=== PATIENT | female | born 1955 | race Caucasian/White ===

== ENCOUNTER 2020-08-15 06:25 | Observation (INO) | payer MEDICARE, OTHER, SELFPAY ==
[2020-08-15] VITALS (45 sets, daily range): BP systolic 113–172; BP diastolic 50–97; PULSE 61–86; RESP 1–28; TEMP 36.6–36.9; O2SAT 89–100; BMI 34.1
--- NOTE | 2020-08-15 06:49 | ECG_ITS ---
[facility] Test Date: 2020-08-15 Pat Name: carl hinds Department: Room: Gender: Female National Opelint Analyst: : 1955 Requested By: Rudolph Biggs Order Number: [id number] Dayanara MD: Naresh Cole M.D. Measurements Intervals [place] Rate: 80 P: 39 ID: [id number] QRS: 50 QRSD: 84 T: 41 QT: 376 QTc: 434 Interpretive Statements SINUS RHYTHM MODERATE ST DEPRESSION [0.05+ mV ST DEPRESSION] No previous ECG available for comparison Electronically Signed On 08-15-2020 17:50:14 LEVEL VIAL GRINDER by Naresh Cole M.D. [id number]
--- NOTE | 2020-08-15 06:49 | XRR_ITS ---
PROCEDURE INFORMATION: Exam: XR Chest, 1 View Exam date and time: 08/15/2020 6:50 AM Age: 65 years old Clinical indication: Chest pain TECHNIQUE: Imaging protocol: XR of the chest Views: 1 view. COMPARISON: No relevant prior studies available. FINDINGS: Lungs: There is mild patchy atelectasis or infiltrate in the left base along the left hemidiaphragm. The right lung is clear. Pleural space: Unremarkable. No pleural effusion. No pneumothorax. Heart/Mediastinum: Unremarkable. No cardiomegaly. Bones/joints: Unremarkable. XR/XR chest 1V portable [id number] IMPRESSION: There is mild patchy atelectasis or infiltrate in the left base along the left hemidiaphragm.
--- NOTE | 2020-08-15 06:54 | ED_ITS ---
HPI - Chest Pain General: Chief Complaint: Chest Pain Stated Complaint: chest pain Time Seen by Provider: 08/15/20 06:26 Source: patient and EMS Mode of arrival: ambulatory Limitations: no limitations History of Present Illness: HPI narrative: Patient awoke with chest pain around 2 AM. Took 2 full-strength aspirin prior to arrival. EMS states chest pain resolved with 1 sublingual nitroglycerin tablet. Patient states pain is started to come back again in the last 5 minutes. No history of coronary artery disease. MD complaint: chest pain Onset (ago): hour(s) (4) Onset: during rest and awoke with symptoms Pain location: substernal Pain radiation: none Severity: moderate Quality: tightness Relieving factors: nitroglycerin Associated symptoms: Reports dyspnea; Deny abdominal pain, fever(s), nausea or vomiting Risk Factors: Coronary artery disease risk factors: diabetes and hypertension Review of Systems General: Reports: 10 or more systems reviewed and unremarkable except in HPI and below Const: Denies: fever(s) or chills ENMT: Denies: throat pain Card: Reports: chest pain Resp: Reports: dyspnea GI: Denies: abdominal pain, nausea, vomiting or diarrhea : Denies: flank pain Musc: Denies: neck pain or back pain Skin/Breast: Denies: rash Neuro: Denies: headache(s) Jonn/Lymph: Denies: easy bruising or easy bleeding Physical Exam Const: COMMON NORMALS: no acute distress and patient oriented x3 HENMT: COMMON NORMALS: normocephalic and atraumatic HEAD & SCALP: normocephalic and atraumatic Eye: COMMON NORMALS: Equal, round and reactive pupils present and EOMs intact bilaterally PUPIL: Yes Equal, round and reactive pupils present Chest: COMMONS NORMALS: normal inspection of the chest and normal palpation of entire chest wall Resp: COMMON NORMALS: normal respiratory effort and clear to auscultation bilaterally EFFORT & INSPECTION: Yes able to speak in complete sentences, No tachypneic and No respiratory distress AUSCULTATION: clear to auscultation bilaterally Cardio: COMMON NORMALS: regular rate and regular rhythm RATE: regular rate RHYTHM: regular rhythm GI: COMMON NORMALS: Normal to inspection, nondistended, normoactive bowel sounds present and Soft to palpation PALPATION: Yes Soft to palpation Neuro: COMMON NORMALS: patient oriented x3, CN's II-XII intact bilaterally, moves all extremities, no focal motor deficits and no sensory deficits noted Course Vital Signs: Vital signs: Vital Signs Temperature 98.5 F 08/15/20 06:26 Pulse Rate 70 08/15/20 08:31 Respiratory Rate 16 08/15/20 08:31 Blood Pressure 172/97 08/15/20 08:31 Pulse Oximetry 92 08/15/20 08:31 MDM - Chest Pain MDM Narrative: Medical decision making narrative: Patient with chest pain and elevated troponin. Discussed with cardiology, Dr. Henry who recommends Plavix and heparin. Patient also with hyperkalemia and hyperglycemia. Given calcium, insulin, and dextrose for the hyperkalemia. Will follow blood glucose levels. Patient admitted and kept n.p.o. for possible heart cath. Admitted to Dr. Wahl. Lab Data: Labs: Lab Results 08/15/20 08/15/20 08/15/20 Range/Units 06:25 06:25 06:25 WBC 9.7 (4.0-10.0) 10^3/ uL RBC 3.97 L (4.1-5.3) 10^6/u L Hgb 11.6 (11.5-15.3) g/dL Hct 37.1 (37.0-47.0) % MCV 93.5 (81-99) fL MCH 29.2 (28.0-34.0) pg MCHC 31.3 (30.0-36.0) g/dL RDW 12.3 (12.1-15.1) % Plt Count 302 (130-400) 10^3/c mm MPV 10.3 (7.4-10.4) fL Neut % (Auto) 78.1 % Lymph % (Auto) 11.6 % [place] % (Auto) 7.4 % Eos % (Auto) 1.7 % Baso % (Auto) 0.6 % Neut # (Auto) 7.56 (1.8-7.7) 10^3/u L Lymph # (Auto) 1.1 (0.8-4.8) 10^3/u L [place] # (Auto) 0.7 (0.2-0.9) 10^3/u L Eos # (Auto) 0.2 (0.0-0.8) 10^3/u L Baso # (Auto) 0.1 (0.0-0.1) 10^3/u L Nucleated RBC % (a uto) 0 % Nucleated RBCs # 0.0 /100WBC Sodium 133 L (136-145) mmol/L Potassium 5.4 H (3.5-5.1) mmol/L Chloride 100 (98-107) mmol/L Carbon Dioxide 22 (22-29) mmol/L Anion Gap 16.4 (5-19) BUN 24 H (8-23) mg/dL Creatinine 1.3 H (0.5-0.9) mg/dL GFR Calculation 41.2 L (90-130) mL/min Glucose 441 H (65-115) mg/dL Calculated Osmolal ity 299 H (285-295) mOsm/k g Calcium 9.5 (8.5-10.5) mg/dL Total Bilirubin 0.3 (0.15-1.2) mg/dL AST 27 (0-32) U/L ALT 24 (0-33) U/L Alkaline Phosphata se 104 (35-105) IU/L Troponin T Baselin e 158 H* (0-10) ng/L NT-Pro-B Natriuret Pep 2394 H (0-125) pg/mL Total Protein 6.4 L (6.6-8.7) g/dL Albumin 3.6 (3.5-5.2) g/dL Globulin 2.8 (1.3-4.6) g/dL Imaging Data^: CXR: Attestation: I personally reviewed and interpreted this imaging study as follows: My impression: NAD EKG Data^: ST and T wave changes. No ST elevation.: Attestation: I personally reviewed and interpreted this EKG as follows: EKG interpretation date: 08/15/20 Ischemic changes: non-specific ST-T wave changes Discharge Plan Discharge Patient Disposition: Placed in Observation Clinical Impression: Acute non-ST elevation myocardial infarction (NSTEMI), Acute hyperglycemia, Acute hyperkalemia Coding Level of Care Code ED Construction Electrician for g Fwd Exam Comprehensive
[2020-08-15 07:20] LABS: Basophils # 0.1 10^3/uL (0.0-0.1); Basophils % 0.6 %; Eosinophils # 0.2 10^3/uL (0.0-0.8); Eosinophils % 1.7 %; Hematocrit 37.1 % (37.0-47.0); Hemoglobin 11.6 g/dL (11.5-15.3); Lymphocytes # 1.1 10^3/uL (0.8-4.8); Lymphocytes % 11.6 %; Mean Corpuscular HGB Conc 31.3 g/dL (30.0-36.0); Mean Corpuscular Hemoglobin 29.2 pg (28.0-34.0); Mean Corpuscular Volume 93.5 fL (81-99); Mean Platelet Volume 10.3 fL (7.4-10.4); Monocytes # 0.7 10^3/uL (0.2-0.9); Monocytes % 7.4 %; Neutrophils # 7.56 10^3/uL (1.8-7.7); Neutrophils % 78.1 %; Nucleated Red Blood Cells % 0 %; Platelet Count 302 10^3/cmm (130-400); Red Blood Count 3.97 10^6/uL (4.1-5.3); Red Cell Distribution Width 12.3 % (12.1-15.1); White Blood Count 9.7 10^3/uL (4.0-10.0)
[2020-08-15 07:27] LABS: Troponin(5th) Baseline 158 ng/L (0-10)
[2020-08-15 07:44] LABS: Alanine Aminotransferase 24 U/L (0-33); Albumin Level 3.6 g/dL (3.5-5.2); Alkaline Phosphatase 104 IU/L (35-105); Anion Gap 16.4 (5-19); Aspartate Amino Transferase 27 U/L (0-32); Blood Urea Nitrogen 24 mg/dL (8-23); Calcium 9.5 mg/dL (8.5-10.5); Carbon Dioxide 22 mmol/L (22-29); Chloride 100 mmol/L (98-107); Globulin 2.8 g/dL (1.3-4.6); Glomerular Filtration Rate 41.2 mL/min (90-130); Glucose 441 mg/dL (65-115); NT Pro B Type Natriuretic Pept 2394 pg/mL (0-125); Osmolality Calculated 299 mOsm/kg (285-295); Potassium 5.4 mmol/L (3.5-5.1); Sodium 133 mmol/L (136-145); Total Bilirubin 0.3 mg/dL (0.15-1.2); Total Protein 6.4 g/dL (6.6-8.7)
[2020-08-15] MEDS: heparin drip 25,000 UNIT/500 ML PREMIX 22.3 UNIT IV (07:51)
[2020-08-15] MEDS: clopidogrel 300 mg Tablet PO (07:53)
[2020-08-15] MEDS: nitroglycerin 0.4 mg sublingual Tablet SUBLINGUAL (07:56)
[2020-08-15] MEDS: insulin regular-human 100 units/1 mL 10 UNIT IVP (08:35)
[2020-08-15] MEDS: dextrose 50% syringe 50 mL IVP (08:36)
--- NOTE | 2020-08-15 08:49 | ECG_ITS ---
[facility] Test Date: 2020-08-15 Pat Name: Helga Suarez Department: Room: 107 Gender: Female Sleeve Setter Lockstitch: DORCAS CARRERAB: 1955 Requested By: Rudolph Biggs Order Number: [id number] Dayanara MD: Naresh Cole M.D. Measurements Intervals [place] Rate: 78 P: 39 VT: 173 QRS: 44 QRSD: 93 T: 30 QT: 396 QTc: 454 Interpretive Statements SINUS RHYTHM LOW QRS VOLTAGE IN PRECORDIAL LEADS [QRS DEFLECTION < 1.0 mV IN CHEST LEADS] MODERATE ST DEPRESSION [0.05+ mV ST DEPRESSION] Compared to ECG 08/15/2020 08:35:25 Low QRS voltage now present ST (T wave) deviation still present Electronically Signed On 08-15-2020 17:56:00 KNOTTING MACHINE OPERATOR PORTABLE by Naresh Cole M.D. [id number]
[2020-08-15 09:16] LABS: Glucose Point of Care 454 mg/dL (70-110)
--- NOTE | 2020-08-15 09:57 | USCV_ITS ---
carl hinds Age: 65 Gender: F : 1955 Exam Date: 08/15/2020 10:15 Ordering Phys: Naresh Cole M.D ([email or web address]) Technologist: Luiza Odom Exam Location: [facility] [place] Indication: NSTEMI BP: 150 / 71 HR: 78 Rhythm: Sinus Technical Quality: Fair MEASUREMENTS (Male / Female) Normal Values 2D ECHO LV Diastolic Diameter PLAX 4.5 cm 4.2 - 5.9 / 3.9 - 5.3 cm LV Systolic Diameter PLAX 3.1 cm LV Chamber Size 5.0 cm IVS Diastolic Thickness 1.3 cm 0.6 - 1.0 / 0.6 - 0.9 cm IVS Systolic Thickness 1.4 cm LVPW Diastolic Thickness 0.8 cm 0.6 - 1.0 / 0.6 - 0.9 cm LVPW Systolic Thickness 1.3 cm RV Chamber Size 2.2 cm LVOT Diameter 1.9 cm LV Ejection Fraction 2D Teich 58.2 % LA Diameter 2.6 cm LA Width 3.7 cm LA Height 4.3 cm RA Width 3.0 cm RA Height 4.4 cm Aorta at Sinotubular Diameter 1.7 cm M-MODE LV Diastolic Diameter MM 5.3 cm 4.2 - 5.9 / 3.9 - 5.3 cm LV Systolic Diameter MM 3.2 cm LV Ejection Fraction MM Teich 70.4 % IVS Diastolic Thickness MM 1.0 cm 0.6 - 1.0 / 0.6 - 0.9 cm IVS Systolic Thickness MM 1.4 cm LVPW Diastolic Thickness MM 1.2 cm 0.6 - 1.0 / 0.6 - 0.9 cm LVPW Systolic Thickness MM 1.7 cm RV Diastolic Diameter MM 1.4 cm Aortic Annulus Diameter 2.6 cm LA Ao Ratio MM 1.1 MV E Point Septal Separation 0.9 cm DOPPLER AV Peak Velocity 137.0 cm/s LVOT Peak Velocity 81.0 cm/s AV Area Cont Eq vti 1.8 cm squared AV Area Cont Eq pk 1.6 cm squared MV Area PHT 5.8 cm squared Mitral E to A Ratio 1.0 MV E' Velocity 43.5 cm/s Mitral E to MV E' Ratio 10.9 Mitral E to LV E' Lateral Ratio 7.9 Mitral E to LV E' Septal Ratio 17.8 TR Peak Velocity 287.4 cm/s TR Peak Gradient 33.0 mmHg TR Mean Velocity 252.0 cm/s TR Mean Gradient 25.5 mmHg TR Velocity Time Integral 77.7 cm TV Peak E Velocity 38.0 cm/s Right Atrial Pressure 3.0 mmHg Pulmonary Artery Systolic Pressu 36.0 mmHg PV Peak Velocity 90.0 cm/s RV Acceleration Time 0.1 s RV Ejection Time 0.3 s RV AcT/ET 0.4 FINDINGS Left Ventricle Normal left ventricular size. Grossly, LV systolic function appears to be borderline reduced. Regional wall motion abnormalities cannot be assessed because of limited visualization. Diastolic function is abnormal. Right Ventricle The right ventricle is normal in size and function. Right Atrium The right atrium is normal in size. RA pressure is 0 to 5 mmHg. Left Atrium The left atrium is normal in size. Mitral Valve Structurally normal mitral valve without significant stenosis or prolapse. There is trace mitral regurgitation. Aortic Valve Structurally normal aortic valve without significant sclerosis or stenosis. There is no aortic regurgitation. Tricuspid Valve Structurally normal tricuspid valve without significant stenosis. Mild tricuspid regurgitation is noted. RVSP is 35 to 40 mmHg. This is consistent with mild pulmonary hypertension. Pulmonic Valve Structurally normal pulmonic valve without significant stenosis. There is no pulmonic regurgitation. Pericardium Normal pericardium without effusion. Aorta Normal ascending aorta dimension. CONCLUSIONS This is technically limited study. LV systolic function is borderline reduced. Regional wall motion abnormalities cannot be assessed because of limited visualization. Diastolic function is abnormal. Mild tricuspid regurgitation is noted. Trace mitral regurgitation is present. Mild pulmonary hypertension is present with RVSP of 35 to 40 mmHg. No comparison studies are available Naresh Cole MD (Electronically Signed) Final Date: 15 August 2020 11:24 S
--- NOTE | 2020-08-15 09:58 | P.CONIM_ITS ---
Providers/Reason For Consult Consulting Physican/Specialty*: Naresh Cole MD/Cardiology Reason for Consult*: NSTEMI Requesting Physcian: Rudolph Biggs MD Primary Care Provider: Murali Streeter History of Present Illness History of Present Illness carl hinds is a 65 year old female with past medical history of diabetes, CKD stage 3 and hypertension presented to the hospital with on and off chest pain. According to patient, she has been having on and off chest pains for the last several months. Tonight at around 2:30 AM she woke up with severe substernal chest discomfort. She took aspirin and came to the emergency room. Intensity of pain has gone down however she continues having about 2/10 substernal chest pain. It comes and goes. Initial troponin was 158 that has uptrended to 313 at 2 hours. E[address] shows borderline [address] depressions diffusely. ECHO performed is of chaudhary ited quality, however shows borderline reduced EF. Regional wall motion abnormalities can not be assessed because of quality of images. Her blood glucose level is high and is around 400. Review of Systems General: Reports: 10 or more systems reviewed and unremarkable except in HPI and below Const: Denies: fever(s) or chills ENMT: Denies: throat pain Card: Reports: chest pain Resp: Reports: dyspnea GI: Denies: abdominal pain, nausea, vomiting or diarrhea : Denies: flank pain Musc: Denies: neck pain or back pain Skin/Breast: Denies: rash Neuro: Denies: headache(s) Jonn/Lymph: Denies: easy bruising or easy bleeding Meds/Allergies Home Medications and Allergies Home Medications Medication Instructions Recorded Confirmed Last Taken Type Nph Insulin 15 unit SUBCUT QAM 08/15/20 08/15/20 Unknown History albuterol sulfate 2 puff INHALATION Q4H PRN 08/15/20 08/15/20 Unknown History aspirin 325 mg PO DAILY@08/15/20 08/15/20 Unknown History carvedilol See Rx Instructions .ROUTE .COMPLEX 08/15/20 08/15/20 Unknown History coenzyme Q10 [CoQ-10] 100 mg PO DAILY@08/15/20 08/15/20 Unknown History doxazosin 2 mg PO BID@08/15/20 08/15/20 Unknown History insulin glargine [Lantus U-100 7 unit SUBCUT QAM 08/15/20 08/15/20 Unknown H istory Insulin] insulin regular human [Novolin R See Rx Instructions .ROUTE .COMPLEX 08/15/20 08/15/20 Unknown History Regular U-100 Insuln] krill oil 1 cap PO DAILY@08/15/20 08/15/20 Unknown History levothyroxine 75 mcg PO DAILY@08/15/20 08/15/20 Unknown History losartan 25 mg PO DAILY@08/15/20 08/15/20 Unknown History multivitamin 1 tab PO DAILY@08/15/20 08/15/20 Unknown History omeprazole 40 mg PO DAILY@08/15/20 08/15/20 Unknown History simvastatin 40 mg PO DAILY@08/15/20 08/15/20 Unknown History sucralfate 1 g PO DAILY@08/15/20 08/15/20 Unknown History Allergies Allergy/AdvReac Type Severity Reaction Status Date / Time bevacizumab [From Avastin] Allergy ALGY-Anaphy Verified 08/15/20 09:36 laxis Current Medications Current Medications Generic Name Dose Route Start Last Admin Trade Name Freq PRN Reason Stop Dose Admin Heparin Sodium/Sodium Chloride 25,000 unit in 500 mls @ 22.317 mls/hr 08/15/20 07:45 08/15/20 07:51 Heparin Drip IV 12 unit/kg/hr .[id number] RUBEN 22.3 mls/hr Administration 12 UNIT/KG/HR Nitroglycerin 0.4 mg 08/15/20 06:49 08/15/20 07:56 Nitroglycerin 0.4 Mg Sublingual Tablet SUBLINGUAL 0.4 mg Q5M PRN Administration CHEST PAIN PFSH Acute PFSH: Medical History GERD (gastroesophageal reflux disease) Hyperlipidemia Hypertension Hypothyroidism Insulin dependent type 2 diabetes mellitus Surgical History History of Family History Mother Dementia Father Congestive heart failure Brother Brain tumor Social History (Reviewed 08/15/20 @ 11:52 by Toni Lynch Smoking and tobacco status: never smoked Alcohol intake: never Substance/Drug Use: never Vitals/I&O/Wt Last Vital Signs Temp 98.5 F 08/15/20 06:26 Pulse 85 08/15/20 09:23 Resp 17 08/15/20 09:23 BP 150/71 08/15/20 09:23 Pulse Ox 96 08/15/20 09:23 Weight last 48 hrs Weight 205 lb Physical Exam Const: COMMON NORMALS: no acute distress and patient oriented x3 GENERAL APPEARANCE: cooperative and comfortable HENMT: COMMON NORMALS: normocephalic HEAD & SCALP: normocephalic Eye: COMMON NORMALS: Equal, round and reactive pupils present and EOMs intact bilaterally GENERAL EYE: appearance normal, both eyes and all related structures PUPIL: Yes Equal, round and reactive pupils present Neck/C-Spine: COMMON NORMALS: full ROM, no lymphadenopathy, no JVD and Thyroid normal THYROID: Thyroid normal Lymph: LYMPHATIC: no lymphadenopathy noted Resp: COMMON NORMALS: normal respiratory effort, No retractions, No use of accessory muscles and clear to auscultation bilaterally AUSCULTATION: clear to auscultation bilaterally Cardio: COMMON NORMALS: no JVD, regular rate, regular rhythm, S1 normal heart sound present, S2 normal heart sound present, No gallops present (Cardio), No clicks present (Cardio) and No murmurs present (Cardio) RATE: regular rate RHYTHM: regular rhythm HEART SOUNDS: S1 normal heart sound present and S2 normal heart sound present GI: COMMON NORMALS: Normal to inspection, nondistended, normoactive bowel sounds present, Soft to palpation, non-tender and No hepatosplenomegaly present PALPATION: Yes Soft to palpation and Yes No hepatosplenomegaly present Extremity: COMMON NORMALS: normal to inspection, full ROM and no pedal edema Neuro: COMMON NORMALS: patient oriented x3, CN's II-XII intact bilaterally, moves all extremities and no focal motor deficits Psych: COMMON NORMALS: mental status grossly normal, Normal thought process present and cooperative THOUGHT PROCESS: Normal thought process present A&P Assessment and plan (1) Acute non-ST elevation myocardial infarction (NSTEMI): Status: Acute (2) Acute hyperglycemia: Status: Acute (3) Hypertension: Status: Acute (4) Hyperlipidemia: Status: Acute (5) Insulin dependent type 2 diabetes mellitus: Status: Acute (6) CKD stage 3 due to type 2 diabetes mellitus: Status: Acute Patient had typical chest pain symptoms with significant elevation of troponin and EKG changes. She has been having on and off episodes of chest discomfort. We will proceed with coronary angiography with possible percutaneous coronary intervention today. I have discussed in detail the risks and benefits of the procedure. Risks including bleeding, infection, abnormal renal function, abnormal heart rhythm, heart attack, stroke and have been described. Patient understands the risks and benefits of the procedure and wants to proceed with the procedure. Aspirin and Plavix loaded Continue heparin gtt ECHO performed. Limited quality study however shows borderline reduced heart function. Likely will need repeat limited echo with contrast tomorrow for assessment of the regional wall motion IV fluids initiated for renal protection Coding Level of Care Code Acute Hammer Runner for Chg Fwd Diagnoses Acute non-ST elevation myocardial infarction (NSTEMI) I21.4 Acute hyperglycemia R73.9 Hypertension I10 Hyperlipidemia E78.5 Insulin dependent type 2 diabetes mellitus E11.9; Z79.4 CKD stage 3 due to type 2 diabetes mellitus E11.22; N18.30
--- NOTE | 2020-08-15 11:41 | PM.HP ---
Providers/Chief Complaint Primary Care Provider: Murali Streeter Chief Complaint: chest pain History of Present Illness Helga Suarez is a 65 year old female with a past medical history of insulin-dependent type 2 diabetes mellitus, reactive airways, hypertension, hyperlipidemia, hypothyroidism, GERD, who presents to [facility] due to substernal chest pain. Patient tells me that she has had substernal chest pain for the last month, typically the pain is right at the substernal, sharp, lasting a few minutes to a few seconds, she tells me that sometimes it comes on when there is a change in the humidity when she is walking from outside to inside, not really associated shortness of breath, no diaphoresis, no lightheadedness, dizziness, no nausea, vomiting. She has never had a coronary angiogram, no history of heart failure, no history of COPD, no history of smoking, no history of CVAs. She tells me that she saw physicians at [facility], had a stress echo performed, that did show some ischemia. She also had a CT chest without contrast done within the last few weeks, that showed some fluid in the right middle lobe lung fissure. Patient continues to have episodes of chest pain down to the emergency room, she has been given Plavix, repeat nitro, receiving fluids, there is plans on performing a coronary angiogram. Her blood sugars remain elevated after 10 units of insulin, last blood sugar 380. Review of Systems Const: Denies: fever(s), chills, fatigue or malaise Eyes: Denies: change in vision or blurry vision ENMT: Denies: throat pain or nasal congestion Card: Reports: chest pain; Denies: palpitations or edema Resp: Denies: dyspnea, productive cough, non-productive cough or wheezing GI: Denies: abdominal pain, nausea, vomiting, hematemesis, diarrhea, constipation, hematochezia or melena : Denies: flank pain, dysuria or urinary frequency Musc: Denies: neck pain or back pain Skin/Breast: Denies: rash Neuro: Denies: headache(s), dizziness or vertigo Psych: Denies: anxiety or depression Endo: Denies: polyuria or polydipsia Medications/Allergies Home Medications Medication Instructions Recorded Confirmed Last Taken Type Nph Insulin 15 unit SUBCUT [facility] 08/15/20 08/15/20 Unknown History albuterol sulfate 2 puff INHALATION Q4H PRN 08/15/20 08/15/20 Unknown History aspirin 325 mg PO DAILY@08/15/20 08/15/20 Unknown History carvedilol See Rx Instructions .ROUTE .COMPLEX 08/15/20 08/15/20 Unknown History coenzyme Q10 [CoQ-10] 100 mg PO DAILY@08/15/20 08/15/20 Unknown History doxazosin 2 mg PO BID@08/15/20 08/15/20 Unknown History insulin glargine [Lantus U-100 7 unit SUBCUT QAM 08/15/20 08/15/20 Unknown History Insulin] insulin regular human [Novolin R See Rx Instructions .ROUTE .COMPLEX 08/15/20 08/15/20 Unknown History Regular U-100 Insuln] krill oil 1 cap PO DAILY@08/15/20 08/15/20 Unknown History levothyroxine 75 mcg PO DAILY@08/15/20 08/15/20 Unknown History losartan 25 mg PO DAILY@08/15/20 08/15/20 Unknown History multivitamin 1 tab PO DAILY@08/15/20 08/15/20 Unknown History omeprazole 40 mg PO DAILY@08/15/20 08/15/20 Unknown History simvastatin 40 mg PO DAILY@08/15/20 08/15/20 Unknown History sucralfate 1 g PO DAILY@08/15/20 08/15/20 Unknown History Allergies Allergy/AdvReac Type Severity Reaction Status Date / Time bevacizumab [From Avastin] Allergy ALGY-Anaphy Verified 08/15/20 09:36 laxis PFSH Acute PFSH: Medical History (Updated 08/15/20 @ 11:48 by Adolph Wahl MD) GERD (gastroesophageal reflux disease) Hyperlipidemia Hypertension Hypothyroidism Insulin dependent type 2 diabetes mellitus Surgical History (Updated 08/15/20 @ 11:46 by Adolph Wahl MD) History of Family History (Updated 08/15/20 @ 11:47 by Adolph Wahl MD) Mother Dementia Father Congestive heart failure Brother Brain tumor Social History (Updated 08/15/20 @ 11:47 by Adolph Wahl MD) Smoking and tobacco status: never smoked Alcohol intake: never Substance/Drug Use: never Vitals/I&O/Wt Last Vital Signs Temp 98.5 F 08/15/20 06:26 Pulse 85 08/15/20 09:23 Resp 17 08/15/20 09:23 BP 150/71 08/15/20 09:23 Pulse Ox 96 08/15/20 09:23 Weight last 48 hrs Weight 92.986 kg Physical Exam Const: COMMON NORMALS: no acute distress and patient oriented x3 GENERAL APPEARANCE: cooperative and comfortable HENMT: COMMON NORMALS: normocephalic HEAD & SCALP: normocephalic Eye: COMMON NORMALS: Equal, round and reactive pupils present and EOMs intact bilaterally GENERAL EYE: appearance normal, both eyes and all related structures PUPIL: Yes Equal, round and reactive pupils present Neck/C-Spine: COMMON NORMALS: full ROM, no lymphadenopathy, no JVD and Thyroid normal THYROID: Thyroid normal Lymph: LYMPHATIC: no lymphadenopathy noted Resp: COMMON NORMALS: normal respiratory effort, No retractions, No use of accessory muscles and clear to auscultation bilaterally AUSCULTATION: clear to auscultation bilaterally Cardio: COMMON NORMALS: no JVD, regular rate, regular rhythm, S1 normal heart sound present, S2 normal heart sound present, No gallops present (Cardio), No clicks present (Cardio) and No murmurs present (Cardio) RATE: regular rate RHYTHM: regular rhythm HEART SOUNDS: S1 normal heart sound present and S2 normal heart sound present GI: COMMON NORMALS: Normal to inspection, nondistended, normoactive bowel sounds present, Soft to palpation, non-tender and No hepatosplenomegaly present PALPATION: Yes Soft to palpation and Yes No hepatosplenomegaly present Extremity: COMMON NORMALS: normal to inspection, full ROM and no pedal edema Neuro: COMMON NORMALS: patient oriented x3, CN's II-XII intact bilaterally, moves all extremities and no focal motor deficits Psych: COMMON NORMALS: mental status grossly normal, Normal thought process present and cooperative THOUGHT PROCESS: Normal thought process present Data : 08/15/20 06:25 08/15/20 06:25 A&P Assessment and plan (1) Acute non-ST elevation myocardial infarction (NSTEMI): -EKG does show ST depressions in the lateral leads, -Troponins 158, second troponin to be 13 with a delta of 155, BNP 239 4, creatinine 1.3, having mild chest pain Plan: -Plans to perform coronary angiogram -Admit to cardiac stepdown unit -Has been loaded with Plavix, aspirin -Statin -On a heparin drip -Nitro for chest pain -Continue Coreg -Serial EKGs, troponins, monitor for chest pain -Cardiology consult -Patient is a full code, however does not want aggressive interventions, like a trial of chest compressions that if unsuccessful to stop, would like a trial of intubation if unsuccessful or if no quality of life stop aggressive interventions, she has detailed living will, however it is at home Status: Acute (2) Insulin dependent type 2 diabetes mellitus: -Continue home Lantus 7 units in the morning, NPH 15 units -Monitor dose sliding scale Status: Acute (3) Hypothyroidism: Continue home levothyroxine Status: Acute (4) GERD (gastroesophageal reflux disease): Status: Acute (5) Hyperlipidemia: Status: Acute (6) Hypertension: Status: Acute (7) Acute hyperglycemia: Receiving insulin Status: Acute (8) Acute hyperkalemia: Received insulin, calcium gluconate in the ER Status: Acute (9) Acute kidney injury superimposed on chronic kidney disease: -Creatinine 1.3, receiving IV hydration, tells me that her baseline is roughly 1.3 Status: Acute Attestations Medical Necessity Statement*: Patient requires hospitalization, outpatient with observation, for acute non-ST elevation WI, requiring coronary angiogram Coding Level of Care Code Acute Paper Finisher for [facility] Fwd Diagnoses Acute non-ST elevation myocardial infarction (NSTEMI) I21.4 Insulin dependent type 2 diabetes mellitus E11.9; Z79.4 Hypothyroidism E03.9 GERD (gastroesophageal reflux disease) K21.9 Hyperlipidemia E78.5 Hypertension I10 Acute hyperglycemia R73.9 Acute hyperkalemia E87.5 Acute kidney injury superimposed on chronic kidney disease N17.9; N18.9
--- NOTE | 2020-08-15 11:45 | XACV_ITS ---
Ht: 165 cm Wt: 93 kg BSA: 2.10 m2 Gender: Female : 1955 Any Known Allergies: Other Exam Priority: Routine Procedure(s): Procedure Description: Diagnostic procedure Procedure Description: PCI procedure Procedure Description: Left Heart Catheterization Procedure Description: Drug Eluting Coronary Stent Procedure Description: PTCA Procedure Description: Miscellaneous Procedure Description: ACT Procedure Description: Coronary Angiography Diagnostic Cath Status: Urgent Diagnostic Findings * CX has luminal irregularities. It gives rise to large second OM branch. This is ostially occluded. This is chronic total occlusion. Distally OM 2 receives collaterals from LAD system.. * LAD is a small caliber vessel. * This is diffusely diseased with very small distal * vessel. pLAD: Moderate 70% stenosis, ESTHELA: 3 flow. * LM has 0% stenosis. * First Obtuse Marginal Branch Segment: Severe 100% stenosis, ESTHELA: 0 flow. * Distal Right Coronary Artery: Severe 80% stenosis, ESTHELA: 3 flow. * Coronary angiography shows right dominance. PCI Status: Urgent PCI Indication: NSTE - ACS Interventional Findings * Decision was made to first attempt revascularization of chronic total occlusion of OM 2. We engaged left main artery using XB 3.5 guide catheter. First we used 0.014 run-through guidewire to attempt to cross the stenosis. This was supported with xabp-psd-surj balloon. Wire was exchanged for a Fielder XT wire. However chronic occlusion could not be crossed with a wire. Attempt at revascularization of OM was aborted. Then we turned our attention to the distal RCA stenosis. We engaged the RCA with the JR4 guide catheter. We used a 0.014 run-through guidewire to cross the stenosis. We used 2.25 x 15 mm semicompliant balloon to predilate the stenosis. This was followed by placement of 2.25 x 26 mm resolute Shalom drug-eluting stent. At this time final angiogram was performed that showed excellent stent expansion, ESTHELA-3 flow and no residual stenosis. Guidewire and guide catheter were removed.. * Distal Right Coronary Artery: 80% stenosis treated with AB TREK 2.25X15 RX BALLOON and MDT R SHALOM 2.25X26 KEYA. 0% residual stenosis, ESTHELA: 3 flow. Conclusions 1. There is severe coronary artery disease. Severe distal RCA stenosis successfully revascularized using KEYA x1.. 2. LAD is diffusely diseased small caliber vessel. It has a proximal 70% stenosis. Distally it is a very small artery. 3. OM 2 is ostially occluded with chronic total occlusion. Revascularization attempt not successful. 4. Distal Right Coronary Artery was treated with Balloon and Drug Eluting Stent. Recommendations * Transfer back to [facility]. * Aspirin and Plavix for at least 1 year. * Order echocardiogram. * High intensity statin therapy. * Beta-tato and lisinopril. * LAD is a very small caliber vessel with diffuse disease secondary to diabetes. Medical management for now. Interventional RX Recommendation: PCI w/o planned CABG Diagnostic RX Recommendation: PCI w/o planned CABG Anticoagulation: Heparin Pressures Phase:Rest AO : 162 / 69 ( 110 ) @ 7:51:00 AM 116 / 53 ( 78 ) @ 7:55:00 AM 138 / 54 ( 89 ) @ 7:56:00 AM 139 / 56 ( 89 ) @ 7:56:00 AM 124 / 57 ( 83 ) @ 8:19:00 AM 96 / 57 ( 74 ) @ 8:41:00 AM 127 / 56 ( 82 ) @ 8:55:00 AM 113 / 55 ( 78 ) @ 9:06:00 AM LV : 135 / 1 / @ 7:56:00 AM 136 / 1 / @ 7:56:00 AM Valves Phase:DefaultPhase AV : 0.0 @ 3:14:42 PM 0.0 @ 3:14:42 PM AV Mean Gradient: 0.0 @ 3:14:42 PM Clinical Evaluation EBL: 5mL-10mL Procedural Details Procedure Consent Obtained. Pre-Procedure Time Out. Identified patient by full name and date of as verbalized by the patient/guarantor. Does the consent match the physician's order: Yes. Accurate & Complete Informed Consent: Yes. Inpatient/Outpatient History & Physical on Chart: Yes. If H&P is completed, is and addenduem needed: No; If yes, is the addendum complete: N/A. Visualize and Verify Site with Patient/Guarantor: N/A. Relevant Radiology Images available: N/A. Pre-op teaching completed and patient verbalized understanding. The risks, benefits, and alternatives of sedation and/or procedure were discussed by physician. The patient agrees to continue. Procedure started. [facility] Clinical Fraility Score: 3: Managing Well. Mortgage Operations Manager Indications: ACS <= 24 hours. Chest Pain Symptom Assessment: Typical Angina Symptoms. Cardiovascular Instability: No. Correct patient, site and procedure confirmed by cath team. PERRLA. Strong, equal hand riveter helper bilaterally. Lungs clear x 5 lobes. IV Site on Arrival: 20 gauge in the right wrist. IV Site on Arrival: 18 gauge in the left hand. IV Fluids: 0.9% NaCl at KVO. 600 mL infused prior to medical laboratory technicians. Physician arrived. Equipment: 6F - Radial. Cardiac Cath Pack. ACIST Manifold Kit Model BT 2000. Heparinized Saline (2 units/mL), 1000 mL bag. Pre Procedural Pulses: bilateral radial was 2+. Oxygen started at 2liters/min via nasal canula. Pre Procedural Pulses: bilateral posterior tibial was Doppled. bilateral groins was prepped with chloroprep then draped in the usual sterile fashion. Pre Procedural Pulses: bilateral dorsalis pedis was Doppled. Baseline sample Acquired. HR: 79 BPM. Physician scrubbed in. Immediate Pre-Procedure Time Out. Correct Patient: Yes; Correct Procedure: Yes; Correct Site: Yes; Correct Patient Position: Yes; Correct Supplies: Yes; Dried Flammable Prep: Yes; Blood Products Available: N/A;. Lidocaine 1% infiltrated to the right radial. Arterial access obtained. EDP Sample taken: LV 135/1,26; HR: 74 BPM; SpO2: 92%. Pullback taken: LV 136/1,27; AO 138/54(89); Mean: 0mmHg, Peak to Peak: 0mmHg, SEP: 23sec/min; HR: 75 BPM; SpO2: 92%. Catheter redirected to the RCA. Multiple views taken of left coronary artery. Multiple views taken of right coronary artery. Catheter removed over the exchange wire. 6 anguillan XB 3.5 guide catheter was inserted over the wire. Unable to advance catheter using Radial artery due to arterial spasm. Catheter removed. Dr Cole moving to groin approach. A TR Band was successful obtaining hemostatsis at the Right Radial artery insertion site. TR band placed. Hemostasis obtained. Lidocaine 1% infiltrated to the right groin. Arterial access obtained with micropuncture set. 6 anguillan XB 3.5 guide catheter was inserted over the wire. ACT drawn. Results 236 seconds. Therapeutic limits - pre-heparin administration 90-150 seconds and monitoring heparin during a vascular procedure >250 seconds. Guide catheter out. Inventory is CRD 6FR XB 3 GUIDE. 6 anguillan XB 3 guide catheter was inserted over the wire. Runthrough guidewire was advanced through the guide catheter to lesion in the OM. 1.25x15 OTW SPRINTER LEGEND balloon inserted over runthrough wire and used for support. Balloon out over wire. Runthrough wire out. Fielder XLT wire inserted. 1.25x15 OTW SPRINTER LEGEND balloon inserted over runthrough wire and used for support. Wire and balloon out. Runthrough guidewire was advanced through the guide catheter to lesion in the mid Circ. Fielder XLT wire inserted to OM. Fielder XLT wire out. A second Runthrough guidewire was advanced through the guide catheter to lesion in the OM. Wires out. Guide catheter out. Inventory is CRD 6FR JR 4 GUIDE 100cm. 6 anguillan JR 4 guide catheter was inserted over the wire. Runthrough guidewire was advanced through the guide catheter to lesion in the distal RCA. Inflation number : 1 A AB TREK 2.25X15 RX BALLOON was prepped and advanced across the Dist RCA , then inflated to 14 GARCÍA for 0:22 seconds. Inflation number: 2 The AB TREK 2.25X15 RX BALLOON was reinflated across the Dist RCA, to 14 GARCÍA for 0:18 seconds. Balloon out. Inflation Number : 3 Robin Rodriguez SHALOM 2.25X26 KEYA -Lot Number# [id number] exp date 06/14/2021 was prepped and advanced across the Dist RCA. The stent was deployed at 14 GARCÍA for 0:18 seconds. Stent balloon out over wire. Results checked. Wire out. Guide catheter out. Physician scrubbed out. A Suture was successful obtaining hemostatsis at the Right Femoral artery insertion site. Sheath(s) sutured into position with 2-0 silk and sterile 4x4's and Op-site applied over the site. No oozing or signs and symptoms of hematoma noted. Arterial sheath flushed and connected to tranducer and pressure bag with heparinized saline. Post Procedure: Pulses reassessed and unchanged. PERRLA. Strong, equal hand riveter helper bilaterally. No VTE prophylaxis required. Medication's Wasted: Lidocaine 1% = 10 mL. Medication's Wasted: Nitro = 49.4 mg. Contrast type used: Omnipaque 300 mgI/mL, 500 mL bottle. Post-op diagnosis: NSTEMI. PCI Indication: NSTE. Complications: none. Estimated blood loss: 5mL-10mL. Total IV fluids: 100 mL. Procedure completed. Patient transferred by bed to 1st floor. Vital chart was stopped. Access Site Site: Right Radial artery Sheath Size: 6 Fr Hemostasis Method: TR Band Hemostasis Success: Successful Site: Right Femoral artery Sheath Size: 6 Fr Hemostasis Method: Suture Hemostasis Success: Successful Procedure Medications Start: 1:46 PM Stop: 1:46 PM Medication: Versed Amount: 1 mg Route: I.V. Start: 1:46 PM Stop: 1:46 PM Medication: Fentanyl Amount: 50 mcg Route: I.V. Start: 1:50 PM Stop: 1:50 PM Medication: Nitrogylcerin Amount: 200 mcg Route: I.A. Start: 1:50 PM Stop: 1:50 PM Medication: Versed Amount: 1 mg Route: I.V. Start: 1:50 PM Stop: 1:50 PM Medication: Fentanyl Amount: 50 mcg Route: I.V. Start: 1:51 PM Stop: 1:51 PM Medication: Heparin Amount: 5000 units Route: I.V. Start: 1:52 PM Stop: 1:52 PM Medication: Nitrogylcerin Amount: 200 mcg Route: I.C. Start: 2:04 PM Stop: 2:04 PM Medication: Nitrogylcerin Amount: 200 mcg Route: I.A. Start: 2:05 PM Stop: 2:05 PM Medication: Versed Amount: 1 mg Route: I.V. Start: 2:06 PM Stop: 2:06 PM Medication: Verapamil Amount: 2.5 mg Route: I.A. Start: 2:07 PM Stop: 2:07 PM Medication: Versed Amount: 1 mg Route: I.V. Start: 2:23 PM Stop: 2:23 PM Medication: Heparin Amount: 2000 units Route: I.V. Start: 2:32 PM Stop: 2:32 PM Medication: Fentanyl Amount: 50 mcg Route: I.V. Start: 2:49 PM Stop: 2:49 PM Medication: Versed Amount: 1 mg Route: I.V. Start: 2:49 PM Stop: 2:49 PM Medication: Fentanyl Amount: 50 mcg Route: I.V. Start: 2:56 PM Stop: 2:56 PM Medication: Heparin Amount: 2000 units Route: I.V. Start: 3:09 PM Stop: 3:09 PM Medication: Plavix Amount: 300 mg Route: P.O. I, the attending physician, have reviewed and verified all procedure medications. Yes, all medications given per verbal order History/Risk Factors Hypertension: Yes Dyslipidemia: Yes Peripheral Arterial Disease (PAD): No Myocardial Infarction ([place]): Yes Obesity: No Renal Disease: No Tobacco Use: Never Prior Interventions PCI: No CABG: No Valve Surgery: No Report Signatures Finalized by Naresh Cole MD on 08/22/2020 05:06 PM
[2020-08-15 11:55] LABS: Glucose Point of Care 336 mg/dL (70-110)
[2020-08-15] MEDS: sodium chloride 0.9% 1,000 ML 100 ML IV ×2 (12:01→17:22)
--- NOTE | 2020-08-15 12:49 | ECG_ITS ---
[facility] Test Date: 2020-08-15 Pat Name: carl hinds Department: Room: Gender: Female Principal System Software Engineer: : 1955 Requested By: Rudolph Biggs Order Number: [id number] Dayanara MD: Naresh Cole M.D. Measurements Intervals [place] Rate: 82 P: 37 NV: 154 QRS: 55 QRSD: 92 T: 33 QT: 386 QTc: 452 Interpretive Statements SINUS RHYTHM MODERATE ST DEPRESSION [0.05+ mV ST DEPRESSION] Compared to ECG 08/15/2020 06:32:39 No significant changes Electronically Signed On 08-15-2020 17:58:56 CUSTOM BOW MAKER by Naresh Cole M.D. [id number]
[2020-08-15 13:23] LABS: Troponin 5 6HR 433.2 ng/L (0-10); Troponin 5 6HR Delta 275.2 ng/L (0-12)
--- NOTE | 2020-08-15 13:41 | W.PM.OPSUD ---
Surgery/Procedure H&P Update DATE OF PROCEDURE: August 15, 2020 DATE H&P PERFORMED: 08/15/20 H&P UPDATE INFORMATION: I have reviewed H&P completed within last 30 days, I have examined patient prior to procedure and No changes to prior documentation PREOP DIAGNOSIS: NSTEMI PRIMARY INDICATION FOR PROCEDURE: NSTEMI PATIENT REASSESSED PRIOR TO SEDATION, WITH NO CHANGE NOTED: Yes PHYSICAL EXAM: alert, oriented x 3, clear to auscultation bilaterally and regular rate & rhythm AIRWAY EVAL/ANESTHESIA PLAN: ASA III, Risks, benefits & alternatives of sedation and/or procedure discussed and Patient agrees to continue as planned
[2020-08-15 13:45] LABS: NT Pro B Type Natriuretic Pept 4329 pg/mL (0-125)
--- NOTE | 2020-08-15 17:06 | PC.NURSE ---
patient has indwelling glucometer patient BG is 111 at this time no insulin given per protocol sliding scale will continue to monitor BG
[2020-08-15] MEDS: famotidine 20 mg Tablet PO (17:22)
[2020-08-15 18:33] LABS: Partial Thromboplastin Time > 250.0 SECONDS (23.9-36.7)
--- NOTE | 2020-08-15 18:40 | PC.NURSE ---
patient PTT remains too high to pull sheath at this time will continue to monitor no hematoma or adverse events noted at this time
[2020-08-15 20:14] LABS: Partial Thromboplastin Time 63.6 SECONDS (23.9-36.7)
[2020-08-15] MEDS: carvedilol 25 mg Tablet PO (20:54)
--- NOTE | 2020-08-15 21:07 | PC.NURSE ---
TR band removed at this time after air was removed per protocol/order. Dressing placed. VSS. Site WNL. Patient educated on post-cath care and activity restrictions and verbalized understanding.
[2020-08-15 21:15] LABS: Glucose Point of Care 163 mg/dL (70-110)
[2020-08-15 21:32] LABS: Partial Thromboplastin Time 53.3 SECONDS (23.9-36.7)
[2020-08-15] MEDS: doxazosin 4 mg Tablet 2 MG PO (22:01)
[2020-08-15] MEDS: atorvastatin 40 mg Tablet 20 MG PO (22:01)
[2020-08-15 22:16] LABS: Partial Thromboplastin Time 37.8 SECONDS (23.9-36.7)
[2020-08-15] MEDS: fentaNYL 50 mcg/mL INJ 2mL IVP (22:34)
--- NOTE | 2020-08-15 23:19 | PC.NURSE ---
Dr. Guevara notified of patient having Heparin drip order still in. Patient has not had Heparin drip running and sheath was just pulled. Ordered to discontinue heparin drip.
--- NOTE | 2020-08-15 23:21 | PC.NURSE ---
Sheath pulled from right groin at 2247. Manual pressure held for 20 minutes. Vital signs remained stable. Patient tolerated well. No issues. Dressing placed. Site WNL. Patient educated on post-cath activity restrictions and verbalized understanding. Will monitor.
[2020-08-16] VITALS (54 sets, daily range): BP systolic 113–146; BP diastolic 40–74; PULSE 66–88; RESP 3–27; TEMP 36.6–36.7; O2SAT 90–98
--- NOTE | 2020-08-16 02:06 | PC.NURSE ---
Patient's VSS. Patient's right wrist and right groin dressings/sites WNL. Will monitor.
[2020-08-16] MEDS: sodium chloride 0.9% 1,000 ML 100 ML IV (03:22)
[2020-08-16 06:43] LABS: Glucose Point of Care 276 mg/dL (70-110)
[2020-08-16] MEDS: insulin nph human 100 units/1 mL 15 UNIT SUBCUT (06:46)
[2020-08-16] MEDS: insulin glargine 100 units/1 mL 7 UNIT SUBCUT (06:47)
--- NOTE | 2020-08-16 06:50 | PC.NURSE ---
Patient ambulated with nurse. VSS. Right and right wrist dressings/sites WNL. Patient is up to chair.
[2020-08-16] MEDS: perflutren protein-a microsphr 0.22 mg/mL SDV 3 mL IV (07:24)
--- NOTE | 2020-08-16 09:19 | P.PN_ITS ---
Subjective Subjective: Interval history: Patient is doing well. She denies any complaints of chest pain, shortness of breath or palpitations. She underwent a distal RCA PCI yesterday with KEYA x1. Her echocardiogram shows preserved LV systolic function with hypokinesis of apical wall. LAD was diffusely diseased and was a small caliber vessel. OM1 was distally occluded with collaterals from LAD. 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 Revascularization could not be performed. Vitals/I&O/Wt Last Vital Signs Temp 98.0 F 08/16/20 08:00 Pulse 72 08/16/20 06:00 Resp 19 H 08/16/20 08:00 BP 146/74 08/16/20 08:00 Pulse Ox 96 08/16/20 08:00 08/15/20 08/16/20 08/16/20 22:59 06:59 14:59 Intake Total 608.645 / 072.164 7096 / 1708.645 Balance 608.645 / 768.452 4598 / 1708.645 Weight last 48 hrs Weight 205 lb Physical Exam Narrative: EXAM NARRATIVE: GENERAL: Patient is alert, awake and oriented x3. [] NECK: No jugular vein distension. [] HEENT: No cyanosis. No icterus. No pallor. [] HEART: Regular S1 and S2. No murmur, rub or gallop. [] LUNGS: Clear to auscultate bilaterally. [] ABDOMEN: Soft, nontender and nondistended. Positive bowel sounds. No guarding, rebound or tenderness. [] CENTRAL NERVOUS SYSTEM: Grossly nonfocal. [] EXTREMITIES: Lower extremities with no edema bilaterally. Pulses palpable in the lower extremities, both dorsalis pedis and posterior tibial. [] Data : 08/16/20 09:47 08/16/20 09:47 A&P Assessment and plan (1) CKD stage 3 due to type 2 diabetes mellitus: Status: Acute (2) Acute non-ST elevation myocardial infarction (NSTEMI): Status: Acute (3) Acute hyperglycemia: Status: Acute (4) Hypertension: Status: Acute (5) Hyperlipidemia: Status: Acute (6) Insulin dependent type 2 diabetes mellitus: Status: Acute Patient is s/p PCI of distal RCA. There is diffuse disease of a small sized LAD and OM1 is ostially occluded. Revascularization was attempted at ostial OM1 however it is a RETAIL SUPPORT MANAGER and LAD could not be crossed. Continue aspirin and Plavix for at least 1 year. High intensity statin therapy Continue Coreg Patient EF is overall borderline normal. Has apical hypokinesis. In case she has chest pain in future, will need the addition of Imdur/Ranexa. Aggressive diabetes control Follow-up with cardiology as outpatient. Patient is stable to be discharged from cardiology standpoint. BMP in 1 week to assess creatinine. Attestations Medical Necessity Statement*: Care expected to cross 2 midnights. Patient is status post PCI of distal RCA secondary to NSTEMI. Coding Level of Care Code Acute Dry Transfer Worker for g Fwd Diagnoses CKD stage 3 due to type 2 diabetes mellitus E11.22; N18.30 Acute non-ST elevation myocardial infarction (NSTEMI) I21.4 Acute hyperglycemia R73.9 Hypertension I10 Hyperlipidemia E78.5 Insulin dependent type 2 diabetes mellitus E11.9; Z79.4
--- NOTE | 2020-08-16 09:20 | PC.CHAP ---
Pastoral Care Encounter/Spiritual Assessment Type of Contact [] Declined furniture manager visit [] Patient/Family/Request visit [] Outpatient visit [] Follow-up visit [] Physician referral [] Code/Alert [x] Routine visit [] Staff referral [] Actively dying [] Patient sleeping [] Family support [] [] Out of room [] Palliative care [] [] Receiving care in room [] Pre-surgical visit [] Trauma [] Long length of stay [] ICU visit [] Other: Relational/Emotional Strength [] Patient feels connected with others/family/visitors/staff [] Distress [] Loneliness/isolation [] Abandonment Spirituality of Patient [x] Person of Salena [] Attends Presybeterian of their [place] [] Believes in Prayer [] Reads Bible or Scientology materials [] There are Spiritual issues to be addressed Batch Heat Treat Operator Interventions [x] Prayer [x] Active listening [x] Non-anxious presence [x] Spiritual/emotional support [] Crisis/trauma care [] Spiritual counseling [] Bereavement support [] Provided bereavement packet [] Provided Bible/devotional materials [] Provided toy/stuffed animal, coloring book to patient or family member [] Provided Communion [] Anointing/Sneads [] Salvation [x] Completed spiritual assessment [] Other: Impact on Illness or Injury [] Angry [] Fearful [] Anxious [] Often cries [] Exhaustion [] Unable to work [] Unable to attend hinduism [] Unable to walk/stand [] Unable to read [] Unable to drive [] Unable to eat/drink [] Unable to sleep [] Unable to be with family [] Patient intubated [] Other: Summary patient received stint.. should be released today.. patient concerned regarding no transportation home...2 hr trip.. furniture manager addressed with SS department and they will address with her. Time spent with patient 20 min
[2020-08-16] MEDS: carvedilol 12.5 mg Tablet PO (09:21)
[2020-08-16] MEDS: sucralfate 1 gm Tablet PO (09:21)
[2020-08-16] MEDS: famotidine 20 mg Tablet PO (09:21)
[2020-08-16] MEDS: aspirin 81 mg EC Tablet PO (09:21)
[2020-08-16] MEDS: levothyroxine 150 mcg Tablet 75 MCG PO (09:22)
[2020-08-16] MEDS: doxazosin 4 mg Tablet 2 MG PO (09:22)
[2020-08-16] MEDS: multivitamin therapeutic Tablet 1 TAB PO (09:23)
[2020-08-16] MEDS: clopidogrel 75 mg Tablet PO (09:23)
[2020-08-16] MEDS: losartan 50 mg Tablet 25 MG PO (09:23)
[2020-08-16 10:03] LABS: Basophils # 0.1 10^3/uL (0.0-0.1); Basophils % 1.1 %; Eosinophils # 0.4 10^3/uL (0.0-0.8); Eosinophils % 6.8 %; Hematocrit 35.2 % (37.0-47.0); Hemoglobin 10.8 g/dL (11.5-15.3); Lymphocytes # 1.5 10^3/uL (0.8-4.8); Lymphocytes % 24.5 %; Mean Corpuscular HGB Conc 30.7 g/dL (30.0-36.0); Mean Corpuscular Hemoglobin 29.5 pg (28.0-34.0); Mean Corpuscular Volume 96.2 fL (81-99); Mean Platelet Volume 10.2 fL (7.4-10.4); Monocytes # 0.7 10^3/uL (0.2-0.9); Monocytes % 10.7 %; Neutrophils # 3.45 10^3/uL (1.8-7.7); Neutrophils % 56.1 %; Nucleated Red Blood Cells % 0 %; Platelet Count 259 10^3/cmm (130-400); Red Blood Count 3.66 10^6/uL (4.1-5.3); Red Cell Distribution Width 12.7 % (12.1-15.1); White Blood Count 6.2 10^3/uL (4.0-10.0)
[2020-08-16 10:25] LABS: Alanine Aminotransferase 19 U/L (0-33); Albumin Level 3.3 g/dL (3.5-5.2); Alkaline Phosphatase 81 IU/L (35-105); Blood Urea Nitrogen 24 mg/dL (8-23); Calcium 9.4 mg/dL (8.5-10.5); Carbon Dioxide 22 mmol/L (22-29); Chloride 103 mmol/L (98-107); Glomerular Filtration Rate 37.9 mL/min (90-130); Glucose 257 mg/dL (65-115); Magnesium 1.6 mg/dL (1.7-2.3); Osmolality Calculated 295 mOsm/kg (285-295); Sodium 136 mmol/L (136-145); Total Bilirubin 0.4 mg/dL (0.15-1.2); Total Protein 6.3 g/dL (6.6-8.7)
[2020-08-16 10:33] LABS: Anion Gap 15.5 (5-19); Aspartate Amino Transferase 26 U/L (0-32); Potassium 4.5 mmol/L (3.5-5.1)
--- NOTE | 2020-08-16 11:14 | P.DS_ITS ---
Discharge Providers Date of Admission: 08/15/20 15:33 Date of Discharge: August 16, 2020 Attending Provider at Admission: Adolph Wahl MD Attending Provider at Discharge: Naresh Cole M.D Primary Care Provider: Murali Streeter Diagnoses at Discharge Discharge Diagnosis (1) Acute non-ST elevation myocardial infarction (NSTEMI): Status: Acute (2) Acute hyperglycemia: Status: Acute (3) Hypertension: Status: Acute (4) Hyperlipidemia: Status: Acute (5) Insulin dependent type 2 diabetes mellitus: Status: Acute (6) CKD stage 3 due to type 2 diabetes mellitus: Status: Acute Reason for Visit Reason for Visit: chest pain Hospital Course Hospital Course Helga Suarez is a 65 year old female with a past medical history of insulin- dependent type 2 diabetes mellitus, reactive airways, hypertension, hyperlipidemia, hypothyroidism, GERD, who presents to [facility] due to substernal chest Patient was admitted to [facility] for acute non-ST elevation SD, cardiology was consulted, she received Plavix, aspirin, statin, heparin drip, Coreg, she was taken to the cardiac catheterization lab and found to have diffuse CAD, her RCA was stented, with KEYA. She was monitored overnight, remained chest pain-free, ambulating without significant symptomatology. she will be discharged on aspirin 81 mg, high-dose statin, Plavix, Coreg, with close follow-up with cardiology as outpatient. Repeat CBC and CMP in 1 week. Hemoglobin discharge was 10.9. Creatinine on discharge was 1.4. Follow-up with primary care provider in 1 week. Physical Exam Const: COMMON NORMALS: no acute distress and patient oriented x3 HENMT: COMMON NORMALS: normocephalic HEAD & SCALP: normocephalic Neck/C-Spine: COMMON NORMALS: no JVD Resp: COMMON NORMALS: normal respiratory effort, No retractions, No use of accessory muscles and clear to auscultation bilaterally AUSCULTATION: clear to auscultation bilaterally Cardio: COMMON NORMALS: no JVD, regular rate, regular rhythm, S1 normal heart sound present and S2 normal heart sound present RATE: regular rate RHYTHM: regular rhythm HEART SOUNDS: S1 normal heart sound present and S2 normal heart sound present GI: COMMON NORMALS: Normal to inspection, nondistended, normoactive bowel sounds present, Soft to palpation, non-tender, No hepatosplenomegaly present, no masses and no bruits PALPATION: Yes Soft to palpation and Yes No hepatosplenomegaly present Extremity: COMMON NORMALS: capillary refill normal, no clubbing, cyanosis or edema, no calf tenderness and no pedal edema Neuro: COMMON NORMALS: patient oriented x3 Psych: COMMON NORMALS: mental status grossly normal Discharge Data Data Completed and Pending: Completed Studies During Hospitalization Category Date Time Status XR chest 1V benitez ble [id number] Stat Exams 08/15/20 06:49 Completed CV echo complete* [id number] Urgent Ultrasound 08/15/20 09:57 Completed Pending at discharge Category Date Time Status STEREOTYPER APPRENTICE request for service Urgent Exams 08/15/20 11:45 Taken CV echo lmt wo/w contras [id number] Rout ine Ultrasound 08/16/20 15:44 Taken US/CV paperwork R outine Ultrasound 08/16/20 Taken Labs from last 24 hours 08/16/20 08/16/20 08/16/20 09:47 09:47 06:35 WBC 6.2 RBC 3.66 L Hgb 10.8 L Hct 35.2 L MCV 96.2 MCH 29.5 MCHC 30.7 RDW 12.7 Plt Count 259 MPV 10.2 Neut % (Auto) 56.1 Lymph % (Auto) 24.5 [place] % (Auto) 10.7 Eos % (Auto) 6.8 Baso % (Auto) 1.1 Neut # (Auto) 3.45 Lymph # (Auto) 1.5 [place] # (Auto) 0.7 Eos # (Auto) 0.4 Baso # (Auto) 0.1 Nucleated RBC % (a uto) 0 Nucleated RBCs # 0.0 APTT Sodium 136 Potassium 4.5 Chloride 103 Carbon Dioxide 22 Anion Gap 15.5 BUN 24 H Creatinine 1.4 H GFR Calculation 37.9 L Glucose 257 H POC Glucose 276 H Calculated Osmolal ity 295 Calcium 9.4 Magnesium 1.6 L Total Bilirubin 0.4 AST 26 ALT 19 Alkaline Phosphata se 81 Troponin T Hi Sens 6Hr Troponin T Hi Sens 6Hr Delta NT-Pro-B Natriuret Pep Total Protein 6.3 L Albumin 3.3 L Globulin 3.0 08/15/20 08/15/20 08/15/20 21:58 21:00 20:42 WBC RBC Hgb Hct MCV MCH MCHC RDW Plt Count MPV Neut % (Auto) Lymph % (Auto) [place] % (Auto) Eos % (Auto) Baso % (Auto) Neut # (Auto) Lymph # (Auto) [place] # (Auto) Eos # (Auto) Baso # (Auto) Nucleated RBC % (a uto) Nucleated RBCs # APTT 37.8 H 53.3 H Sodium Potassium Chloride Carbon Dioxide Anion Gap BUN Creatinine GFR Calculation Glucose POC Glucose 163 H Calculated Osmolal ity Calcium Magnesium Total Bilirubin AST ALT Alkaline Phosphata se Troponin T Hi Sens 6Hr Troponin T Hi Sens 6Hr Delta NT-Pro-B Natriuret Pep Total Protein Albumin Globulin 08/15/20 08/15/20 08/15/20 19:35 17:12 12:20 WBC RBC Hgb Hct MCV MCH MCHC RDW Plt Count MPV Neut % (Auto) Lymph % (Auto) [place] % (Auto) Eos % (Auto) Baso % (Auto) Neut # (Auto) Lymph # (Auto) [place] # (Auto) Eos # (Auto) Baso # (Auto) Nucleated RBC % (a uto) Nucleated RBCs # APTT 63.6 H D > 250.0 H* Sodium Potassium Chloride Carbon Dioxide Anion Gap BUN Creatinine GFR Calculation Glucose POC Glucose Calculated Osmolal ity Calcium Magnesium Total Bilirubin AST ALT Alkaline Phosphata se Troponin T Hi Sens 6Hr Troponin T Hi Sens 6Hr Delta NT-Pro-B Natriuret Pep 4329 H Total Protein Albumin Globulin 08/15/20 08/15/20 12:20 11:53 WBC RBC Hgb Hct MCV MCH MCHC RDW Plt Count MPV Neut % (Auto) Lymph % (Auto) [place] % (Auto) Eos % (Auto) Baso % (Auto) Neut # (Auto) Lymph # (Auto) [place] # (Auto) Eos # (Auto) Baso # (Auto) Nucleated RBC % (a uto) Nucleated RBCs # APTT Sodium Potassium Chloride Carbon Dioxide Anion Gap BUN Creatinine GFR Calculation Glucose POC Glucose 336 H Calculated Osmolal ity Calcium Magnesium Total Bilirubin AST ALT Alkaline Phosphata se Troponin T Hi Sens 6Hr 433.2 H Troponin T Hi Sens 6Hr Delta 275.2 H* NT-Pro-B Natriuret Pep Total Protein Albumin Globulin Vitals: Last Vital Signs Temp 98.0 F 08/16/20 08:00 Pulse 88 08/16/20 10:33 Resp 17 08/16/20 10:33 BP 146/74 08/16/20 08:00 Pulse Ox 98 08/16/20 10:33 Discharge Plan Discharge Patient Disposition: Home Condition: Stable Prescriptions: New nitroglycerin 0.4 mg Tablet, Sublingual 0.4 mg sublingual Q5M PRN (Reason: Chest Pain) 5 Days Qty: 5 RF: 0 clopidogrel 75 mg Tablet 75 mg PO DAILY 30 Days Qty: 30 RF: 0 aspirin 81 mg Tablet,Delayed Release (Dr/Ec) 81 mg PO DAILY@10 30 Days Qty: 30 RF: 0 atorvastatin 40 mg Tablet 80 mg PO DAILY@23 30 Days Qty: 30 RF: 0 Continued multivitamin Tablet 1 tab PO DAILY@10 RF: 0 carvedilol 12.5 mg tablet See Rx Instructions .ROUTE .COMPLEX RF: 0 Lantus U-100 Insulin 100 unit/mL solution 7 unit SUBCUT QAM RF: 0 doxazosin 1 mg tablet 2 mg PO BID@10,23 RF: 0 sucralfate 1 gram tablet 1 g PO DAILY@10 RF: 0 omeprazole 40 mg capsule,delayed release(DR/EC) 40 mg PO DAILY@10 RF: 0 levothyroxine 75 mcg tablet 75 mcg PO DAILY@10 RF: 0 Novolin R Regular U-100 Insuln 100 unit/mL Solution See Rx Instructions .ROUTE .COMPLEX RF: 0 losartan 25 mg tablet 25 mg PO DAILY@10 RF: 0 albuterol sulfate 90 mcg/actuation HFA aerosol inhaler 2 puff INHALATION Q4H PRN (Reason: Shortness Of Breath) RF: 0 CoQ-10 100 mg Capsule 100 mg PO DAILY@10 RF: 0 Nph Insulin 15 unit SUBCUT QAM RF: 0 krill oil 1 cap PO DAILY@10 RF: 0 Discontinued aspirin 325 mg Tablet 325 mg PO DAILY@10 RF: 0 simvastatin 40 mg tablet 40 mg PO DAILY@23 RF: 0 Discharge Orders: Discharge Order (Routine); Ordered 08/16/20 Ordered By: Adolph Wahl Other Ambulatory Orders: Complete Blood Count w/Auto (Routine) Timeframe: 1 Week Location: Determined by Patient Ordered By: Adolph Wahl Comprehensive Metabolic Panel (Routine) Timeframe: 1 Week Facility: [facility] - Location: Lab - Main Lab Ordered By: Adolph Vish Referrals: Murali Streeter [Primary Care Provider] - Naresh Cole M.D [Physician] - 2 weeks Discharge Diet: Cardiac Discharge Activity: Increase activity as tolerated Activity Restrictions/Additional Instructions: -We have discharged on dual antiplatelet therapy, monitor for bloody or black stools, if so see primary care -Follow-up with primary care in 1 week for recheck of creatinine, creatinine discharge was 1.4 -Monitor hemoglobin, check CBC in 1 week, hemoglobin discharge was 10.9 -Follow-up with cardiology in 2 weeks Discharge Attestations Time Spent in Discharge Care*: greater than 30 min Quality Metrics Clinical Quality Measures During this hospital stay, did patient experience: AMI Clinical Trial Participant: No Contraindication to aspirin (AMI): Aspirin given Contraindication to statin: Statin prescribed Contraindication to PCI: PCI performed Coding Level of Care Code Acute Caregivers Non Medical for [facility] Fwd Diagnoses Acute non-ST elevation myocardial infarction (NSTEMI) I21.4 Acute hyperglycemia R73.9 Hypertension I10 Hyperlipidemia E78.5 Insulin dependent type 2 diabetes mellitus E11.9; Z79.4 CKD stage 3 due to type 2 diabetes mellitus E11.22; N18.30
--- NOTE | 2020-08-16 12:26 | PC.NURSE ---
insulin Patient has refused morning and afternoon doses of insulin and requested 2 units both times
--- NOTE | 2020-08-16 13:50 | PC.NURSE ---
Discharge Patient was discharged at 1330 via wheelchair to family friends vehicle. Discharge instructions in hand
--- NOTE | 2020-08-16 15:44 | USCV_ITS ---
Helga Suarez Age: 65 Gender: F : 1955 Exam Date: 08/16/2020 06:15 Ordering Phys: Naresh Cole M.D ([email or web address]) Technologist: Alida Hodges Exam Location: [facility] [place] Indication: BP: 113 / 40 HR: 73 Rhythm: Sinus Technical Quality: Good MEASUREMENTS (Male / Female) Normal Values 2D ECHO LV Ejection Fraction MOD 2C 61.4 % LV Ejection Fraction 2C AL 60.5 % FINDINGS Left Ventricle There is a limited echocardiogram performed to evaluate LV systolic function and regional wall motion abnormalities. LVEF is borderline normal with EF of 50 to 55%. There is severe hypokinesis of apical wall. Moderate hypokinesis of distal anterior and anterolateral wall is also noted. Right Ventricle Right Atrium Left Atrium Mitral Valve Aortic Valve Tricuspid Valve Pulmonic Valve Pericardium Aorta CONCLUSIONS This is a limited echocardiogram with contrast performed to evaluate LV systolic function and regional wall motion abnormalities. Stress function is borderline normal with EF of 50 to 55%. There is severe hypokinesis of apical bloom. Moderate hypokinesis of distal anterior anterolateral wall is also noted. Naresh Cole MD (Electronically Signed) Final Date: 16 August 2020 19:18 S
== END 2020-08-16 13:30 | disposition home or self-care (01) ==
LOC: ER 11:26 → CCL 15:37 → CSU 19:12
PROVIDERS: Admitting Provider Family Medicine; Emergency Provider Emergency Medicine; PCP Physician Assistant Medical; Visit Provider Internal Medicine
DX: I21.4 Non-ST elevation (NSTEMI) myocardial infarction (principal); E11.65 Type 2 diabetes mellitus with hyperglycemia; Z79.4 Long term (current) use of insulin; E03.9 Hypothyroidism, unspecified; K21.9 Gastro-esophageal reflux disease without esophagitis; E78.5 Hyperlipidemia, unspecified; E87.5 Hyperkalemia; N17.9 Acute kidney failure, unspecified; E11.22 Type 2 diabetes mellitus with diabetic chronic kidney disease; I12.9 Hypertensive chronic kidney disease with stage 1 through stage 4 chronic kidney disease, or unspecified chronic kidney disease; N18.30 Chronic kidney disease, stage 3 unspecified; Z79.82 Long term (current) use of aspirin
CPT/HCPCS: 12345; 36415; 36416; 71045; 80053; 82962; 83735; 83880; 84484; 85025; 85347; 85730; 93005; 93306; 93452; 96361; 96365; 96366; 96367; 96372; 96375; 99283; 99285; C1725; C1769; C1874; C1887; C1894; C8924; C9600; G0378; J0610; J1644; J1815 ×2; J2250; J3010; J3490; J7030; Q9956; Q9967